=== PATIENT | female | born 1995 | race Hispanic/Latino ===

== ENCOUNTER 2021-01-30 10:51 | Inpatient (IN) | payer OTHER ==
[2021-01-30] MEDS ORDERED: Ibuprofen 800 MG TAB PO PRN (11:34)
[2021-01-30] MEDS ORDERED: Methylergonovine 0.2 MG/ML VIAL IM PRN (11:34)
[2021-01-30] MEDS ORDERED: Promethazine HCl 25 MG/ML VIAL IM PRN ×2 (11:34→17:27)
[2021-01-30] MEDS ORDERED: Diphenoxylate HCl/Atropine Tablet PO PRN (11:34)
[2021-01-30] MEDS ORDERED: hydrALAZINE 20 MG/ML VIAL SLOW IVP PRN (11:34)
[2021-01-30] MEDS ORDERED: Ondansetron PF 4 MG/2 ML Vial IVP PRN ×2 (11:34→17:27)
[2021-01-30] MEDS ORDERED: Butorphanol Tartrate 1 MG/ML VIAL SLOW IVP PRN (11:34)
[2021-01-30] MEDS ORDERED: HYDROcodone/Acetaminophen 5/325 mg Tablet PO PRN (11:34)
[2021-01-30] MEDS ORDERED: Misoprostol 200 MCG TAB PR PRN (11:34)
[2021-01-30] MEDS ORDERED: Acetaminophen 500 MG TAB PO PRN (11:34)
[2021-01-30] MEDS ORDERED: Carboprost 250 MCG/ML AMP IM PRN (11:34)
[2021-01-30] MEDS ORDERED: Lidocaine 1% (PF) 30 ML VIAL SC PRN (11:34)
[2021-01-30] MEDS ORDERED: Lactated Ringer's 1,000 ML IV SCH (11:45)
[2021-01-30] MEDS ORDERED: NS w/ Oxytocin 30 units 500 ML IV SCH ×2 (11:45)
[2021-01-30] MEDS ORDERED: NS w/ Oxytocin 30 units 500 ML IVPB SCH (11:45)
[2021-01-30 12:46] LABS: Hemoglobin 11.6 g/dL (12.0-15.5); Mean Corpuscular HGB CONC 33.8 g/dL (32.0-36.0); Mean Corpuscular Hemoglobin 30.9 pg (27.0-33.0); Mean Corpuscular Volume 91.2 fl (81.6-98.3); Mean Platelet Volume 10.2 fl (7.4-10.4); Platelet Count 268 10x3/uL (150-450); RBC Distribution Width 13.8 % (11.5-14.5); Red Blood Cell (RBC) Count 3.76 10x6/uL (3.90-5.03); White Blood Cell (WBC) Count 8.7 10x3/uL (3.5-10.5)
[2021-01-30 13:19] LABS: Syphilis Antibody Nonreactive (Nonreactive); Syphilis Antibody Index 0.02 S/CO (<1.00 Non-Reactive)
[2021-01-30 13:20] LABS: Hep B Surf Ag Non-Reactive S/CO (NonReactive)
[2021-01-30 13:24] LABS: HBSAg Index 0.18 S/CO (0-0.99)
[2021-01-30 13:41] LABS: SARS-CoV-2 NAA Rapid Test Not Detected (NotDetected)
[2021-01-30] MEDS ORDERED: Fentanyl 2 mcg/Bup 0.1% Cadd 100 ML ONE (14:58)
[2021-01-30] MEDS ORDERED: diphenhydrAMINE 50 MG/ML VIAL IVP PRN (17:27)
[2021-01-30] MEDS ORDERED: Lactated Ringer's 500 ML IV PRN (17:27)
[2021-01-30] MEDS ORDERED: ePHEDrine Sulfate 50 MG/10 ML VIAL SLOW IVP PRN (17:27)
[2021-01-30] MEDS ORDERED: Hydrocerin (Eucerin) Cream 120 gm Jar TOP PRN (17:27)
[2021-01-30] MEDS ORDERED: Acetaminophen 325 MG TAB PO PRN (17:27)
[2021-01-30] MEDS ORDERED: Naloxone HCl 0.4 mg/ml Vial IVP PRN ×2 (17:27)
[2021-01-30] MEDS ORDERED: Communication Order-Pharmacy FS SCH (17:30)
[2021-01-30] MEDS ORDERED: Fentanyl 2 mcg/Bupivacaine 0.1% Cassette 100 ML EPIDURAL SCH (17:30)
[2021-01-31] MEDS ORDERED: diphenhydrAMINE 25 MG CAP PO PRN (06:37)
[2021-01-31] MEDS ORDERED: Preparation H Ointment 28 GM TUBE PR PRN (06:37)
[2021-01-31] MEDS ORDERED: Benzocaine-Menthol 82.5 ML CAN TOP PRN (06:37)
[2021-01-31] MEDS ORDERED: HYDROcodone/Acetaminophen 5/325 mg Tablet PO PRN (06:37)
[2021-01-31] MEDS ORDERED: Bisacodyl 10 MG SUPP PR PRN (06:37)
[2021-01-31] MEDS ORDERED: Lanolin Ointment 7 GM TUBE TOP PRN (06:37)
[2021-01-31] MEDS ORDERED: Ondansetron PF 4 MG/2 ML Vial IVP PRN (06:37)
[2021-01-31] MEDS ORDERED: hydrALAZINE 20 MG/ML VIAL SLOW IVP PRN (06:37)
[2021-01-31] MEDS ORDERED: Promethazine HCl 25 MG/ML VIAL IM PRN (06:37)
[2021-01-31] MEDS ORDERED: Milk Of Magnesia 30 ML UDCUP PO PRN (06:37)
[2021-01-31] MEDS ORDERED: NS w/ Oxytocin 30 units 500 ML IV SCH (06:37)
[2021-01-31] MEDS: Ibuprofen 800 MG TAB PO SCH ×3 (06:59→21:49)
[2021-01-31] MEDS ORDERED: Ibuprofen 800 MG TAB PO SCH (07:00)
[2021-01-31] MEDS: Prenatal Vitamin 1 TAB PO SCH (10:13)
[2021-01-31] MEDS: Docusate Calcium (SURFAK) 240 MG CAP PO SCH ×2 (10:13→21:49)
[2021-01-31] MEDS: Ferrous Sulfate 325 MG TAB PO SCH (16:27)
[2021-02-01] MEDS ORDERED: Boostrix 0.5 ML (Tdap) VIAL IM ONE (06:37)
[2021-02-01] MEDS: Ibuprofen 800 MG TAB PO SCH ×2 (07:11→07:53)
[2021-02-01] MEDS: Ferrous Sulfate 325 MG TAB PO SCH (07:27)
[2021-02-01 07:52] VITALS: BP 93/52; TEMP 98.2
[2021-02-01] MEDS: Docusate Calcium (SURFAK) 240 MG CAP PO SCH (07:53)
[2021-02-01] MEDS: Prenatal Vitamin 1 TAB PO SCH (07:53)
== END 2021-02-01 11:44 | disposition home or self-care (01) | DRG 807 ==
LOC: CSHLD/OP 10:51 → CSHLD 12:57 → CSHPP 01-31 15:30
PROVIDERS: ADMIT Family Medicine; ATTEND Family Medicine
PROC: 10E0XZZ Delivery of Products of Conception, External Approach (ICD-10-PCS; principal; 2021-01-30)
DX: O80 Encounter for full-term uncomplicated delivery (principal); Z37.0 Single live birth; Z20.822 Contact with and (suspected) exposure to COVID-19; Z3A.39 39 weeks gestation of pregnancy
CPT/HCPCS: 36415; 51702; 85027; 86780; 86850; 86900; 86901; 87340; 99285; U0002